=== PATIENT | female | born 1945 | race African-American/Black ===

== ENCOUNTER 2016-12-14 09:14 | Day surgery (SDC) | payer MEDICARE ==
[~2016-12-14] VITALS: Ht 165.1 cm; Wt 54.4 kg
[~2016-12-14 09:14] MED LIST: AMLO10TA4 PO; BALANCED SALT IRRIG SOLN COMB1 500ML OP SCH; LOSA100T14 PO; PHENYLEPHRINE 2.5% OPHTH 15 DROP/ML BOTTLE RIGHTEYE SCH; TROPICAMIDE 1% OPHTH DROPS 15ML RIGHTEYE SCH; VITA1TAB18 PO
[2016-12-14] MEDS ORDERED: HOMATROPINE HBR 5% OPHTH 5ML ONE (09:31)
[2016-12-14] MEDS ORDERED: METHYLPREDNISOLONE SOD SUCC 40 MG/ML VIAL ONE (09:32)
[2016-12-14] MEDS ORDERED: HYALURONATE SODIUM 14 MG/ML 0.85ML SYRINGE IO ONE (09:32)
[2016-12-14] MEDS ORDERED: TOBRAMYCIN/DEXAMETH 0.1/0.3% OPHTH SUSP 2.5ML ONE (09:32)
[2016-12-14] MEDS ORDERED: LACTATED RINGERS 1,000 ML IV SCH (10:05)
[2016-12-14] MEDS ORDERED: TETRACAINE 0.5% OPHTH DROPS 4ML ONE (10:49)
[2016-12-14] MEDS ORDERED: BUPIVACAINE HCL/PF 0.75% (7.5MG/ML) 10ML ONE (10:49)
[2016-12-14] MEDS ORDERED: ACETYLCHOLINE CHLORIDE INTRAOCULAR SOLUTION 1:100 ELECTROLYTE DILUENT IO ONE (10:49)
[2016-12-14] MEDS ORDERED: BALANCED SALT IRRIG SOLN 15ML ONE (10:49)
[2016-12-14] MEDS ORDERED: LIDOCAINE HCL 1% 20ML VIAL (Pyxis) INJ ONE (10:57)
[2016-12-14] MEDS ORDERED: PROPOFOL 200MG/20ML VIAL IV ONE (10:57)
[2016-12-14] MEDS ORDERED: FENTANYL CITRATE/PF 50MCG/ML 2ML VIAL ONE (10:57)
[2016-12-14] MEDS ORDERED: MIDAZOLAM HCL 2 MG/2 ML VIAL ONE (10:58)
[2016-12-14] MEDS ORDERED: MEPERIDINE HCL/PF 25MG/ML CPJ IV PRN (11:00)
[2016-12-14] MEDS ORDERED: LABETALOL HCL 20MG/4ML CARPUJECT IV PRN (11:00)
[2016-12-14] MEDS ORDERED: ONDANSETRON HCL 4MG/2ML VIAL IV PRN (11:00)
[2016-12-14] MEDS ORDERED: HYDROMORPHONE HCL/PF 2MG/ML CPJ IV PRN (11:00)
== END 2016-12-14 14:00 | disposition home or self-care (01) ==
LOC: OR 09:14 → EDBD 10:30 → OR 14:00
PROVIDERS: ATTEND Ophthalmology
DX: H26.9 Unspecified cataract (principal); I10 Essential (primary) hypertension; Z96.1 Presence of intraocular lens
CPT/HCPCS: 66984; J2250; J3010; J3490; J7120; V2632; J2704; J2920